=== PATIENT | male | born 1985 | race Two or more races ===

== ENCOUNTER 2020-12-11 16:05 | Outpatient (CLI) | payer OTHER | END 2020-12-11 23:59 | disposition home or self-care (01) | LOC: LAB 16:05 | PROVIDERS: ATTEND Orthopaedic Surgery Foot and Ankle Surgery | DX: Z11.9 Encounter for screening for infectious and parasitic diseases, unspecified (principal) | CPT/HCPCS: 36415; 86592; 86706; 86803; 87340; 87491; 87591; 87806; G0475 ==